=== PATIENT | male | born 1940 ===

== ENCOUNTER 2018-09-06 09:29 | Day surgery (SDC) | payer MEDICARE, BC ==
[2018-08-31 11:57] VITALS: BMI 25.0
[2018-09-06] MEDS ORDERED: Flumazenil 0.1 mg/ml Inj (5ml) IVP ONE (12:04)
[2018-09-06] MEDS ORDERED: Naloxone 0.4 mg/ml Inj (Adult) ONE (12:04)
[2018-09-06] MEDS ORDERED: Midazolam 2 MG/2 ML VIAL ONE (12:04)
[2018-09-06] MEDS ORDERED: Midazolam 2 MG/2 ML VIAL IV ONE ×3 (12:10→12:15)
[2018-09-06] MEDS ORDERED: Sodium Chloride 0.9% 1,000 ML IV SCH (13:00)
[2018-09-06 13:49] VITALS: RESP 18; TEMP 97.9
[2018-09-06 14:25] VITALS: BP 157/71; PULSE 57; O2SAT 97
--- NOTE | 2018-09-06 15:56 | CARD ---
APPROVED REPORT Date of service: 09/06/2018 EXAM: Two-dimensional and M-mode echocardiogram with Doppler and color Doppler. INDICATION 2D DIMENSIONS LVOT Diameter2.0 (1.8-2.4cm) Aortic Valve AoV Peak Andnamfq803.0cm/sAoV VTI72.9cmAO Peak GR.32mmHg LVOT Peak Abjcepwg725.0cm/sLVOT VTI27.30cmAO Mean GR.19mmHg ALTAF (VMAX)1.37bo2OUV (VTI)1.18cm2 Mitral Valve E/A ratio0.0 TDI E/Lateral E'0.0E/Medial E'0.0 Reason For Test : To assess severity of /AR PROCEDURE After obtaining informed consent, patient underwent transesophageal echo in the Echo Lab. Type of Sedation : Conscious Sedation Sedation was administered by Dr. dasilva. Sedation was achieved with Versed and , Fentanyl 2.5 mg and 100 mcg intravenously. Transesophageal probe was inserted and advanced into esophagus without difficulty. Echo enhancement agent administered: Agitated Saline The ADEEL was performed without complications. Throughout the procedure, the blood pressure, pulse oximetry, cardiac rhythm, and rate were monitored. The patient tolerated the procedure without adverse effects. Recovery from conscious sedation was uneventful and vital signs were stable. LEFT VENTRICLE The left ventricle is normal size. There is borderline to mild concentric left ventricular hypertrophy. The left ventricular function is normal.EF-60-65% There is normal LV segmental wall motion. The left ventricular diastolic function is normal. No left ventricle thrombus noted on this study. There is no ventricular septal defect visualized. There is no left ventricular aneurysm. There is no mass noted in the left ventricle. RIGHT VENTRICLE The right ventricle is normal size. There is normal right ventricular wall thickness. The right ventricular systolic function is normal. ATRIA The left atrium is mildly dilated. The right atrium is mildly dilated. The interatrial septum is intact with no evidence for an atrial septal defect, By color flow and Bubble study. AORTIC VALVE The aortic valve is calcified and displays decreased opening. There is moderate to severe aortic regurgitation. Eccentric jet directed anteriorly towards anterior mitral Va;lve leaflet There is moderate valvular aortic stenosis. Peak Gradient Across aortc valve 32 mm of Hg. ALTAF by Continuity equation 1.2 cm2 and By planimetry 1.5-1.7 cm2 There is no aortic valvular vegetation. MITRAL VALVE The mitral valve leaflets are thickened. There is no evidence of mitral valve prolapse. There is no mitral valve stenosis. Mitral regurgitation is mild. TRICUSPID VALVE The tricuspid valve is normal in structure. There is trace tricuspid regurgitation. There is no tricuspid valve prolapse or vegetation. There is no tricuspid valve stenosis. PULMONIC VALVE The pulmonary valve is normal in structure. There is no pulmonic valvular regurgitation. There is no pulmonic valvular stenosis. GREAT VESSELS The aortic root is normal in size. The ascending aorta is normal in size. The pulmonary artery is normal. The IVC is normal in size and collapses >50% with inspiration. PERICARDIAL EFFUSION There is no pericardial effusion. There is no pleural effusion. <Conclusion> The left ventricle is normal size. There is borderline to mild concentric left ventricular hypertrophy. The left ventricular function is normal.EF-60-65% There is moderate to severe aortic regurgitation. Eccentric jet directed anteriorly towards anterior mitral Va;lve leaflet There is moderate valvular aortic stenosis. Peak Gradient Across aortc valve 32 mm of Hg. ALTAF by Continuity equation 1.2 cm2 and By planimetry 1.5-1.7 cm2 Mitral regurgitation is mild. There is trace tricuspid regurgitation. There is no pleural effusion. Velocity in MANSI >0.4 m/s Mild plaque inb Descending aorta noted.
== END 2018-09-06 14:45 | disposition home or self-care (01) ==
LOC: TEE 09:29 → EDSTATUS 11:00 → TEE 14:45
PROVIDERS: ATTEND Internal Medicine Cardiovascular Disease
DX: I35.0 Nonrheumatic aortic (valve) stenosis (principal); I25.10 Atherosclerotic heart disease of native coronary artery without angina pectoris; I10 Essential (primary) hypertension
CPT/HCPCS: 93312; J2250; J3010; J7030; J7040